=== PATIENT | male | born 1970 | race Caucasian/White ===

== ENCOUNTER 2017-04-05 11:17 | Emergency (ER) | payer SELFPAY ==
[~2017-04-05 11:17] MED LIST: ACETAMINOPHEN PO; ANTI-INFLAMMATORY; DARVOCET-N 1001 TAB PO; FLEXERIL PO; HYDROCODON-ACE1 EAC6 PO; IBUPROFEN PO; KEFLEX PO; KETOPROFEN PO; LORTAB 7.5-5001 TAB PO; MOBIC PO; NO MEDICATIONS; NORCO 5/325 TAB1 TAB PO; PERCOCET 7.5-31 EACH PO; XARELTO PO; [UNRECOGNIZED DRUG - OTHER]
== END 2017-04-05 13:30 | disposition home or self-care (01) ==
LOC: SED 11:17
DX: L02.811 Cutaneous abscess of head [any part, except face] (principal); H60.11 Cellulitis of right external ear; Z98.890 Other specified postprocedural states; Z88.2 Allergy status to sulfonamides
CPT/HCPCS: 10060; 87070; 87205; 99283